=== PATIENT | male | born 2000 | race Caucasian/White ===

== ENCOUNTER 2019-10-15 17:54 | Inpatient (IN) | payer BC ==
[~2019-10-15] VITALS: Ht 175.3 cm; Wt 72.7 kg
[2019-10-15] VITALS (7 sets, daily range): BP systolic 96–108; BP diastolic 57–68; Ht 175.3 cm; Wt 72.7 kg
--- NOTE | 2019-10-15 18:06 | NUR ---
CONTACT [facility] AT THIS TIME
--- NOTE | 2019-10-15 18:16 | NUR ---
SPOKE WITH MAY WITH [facility]. FOR LISINOPRIL INGESTION: WATCH FOR HYPERKALEMIA, MILD HYPOTENSION, RENAL INSUFFICIANCY, SYNCOPE AND BRADYCARDIA. TX BY SUPPORT SYMPTOMS, FLUID FOR HYPOTENSION, TX HYPERKALEMIA IF NEEDED FOR ABILIFY INSUFFICIENCY: WATCH FOR NEW GRAD RN SEDATION, TACHYCARDIA, TREMORS, NAUSEA AND VOMITING, POSSIBLE NEURO MALIGNANT SYNDROME (TX WITH DANTROLENE OR BENZOs IF NEEDED), AGITATION TX BY SUPPORTING SYMPTOMS, FLUIDS, ANTIEMETICS, BENZOs DR. PEREZ INFORMED OF THIS INFORMATION.
[2019-10-15 18:21] LABS: BASOPHILS 0.4 % (0-2); EOSINOPHILS 0.7 % (0-7); HEMATOCRIT 43.7 % (42.0-54.0); HEMOGLOBIN 15.4 g/dL (13.5-17.5); IMMATURE GRANULOCYTES 0.1 % (0-5); LYMPHOCYTES 29.7 % (15-50); MCH 28.8 pg (26.0-34.0); MCHC 35.2 g/dL (31.0-37.0); MCV 81.7 fL (80.0-100.0); MEAN PLATELET VOLUME 10.1 fL (7.4-10.4); MONOCYTES 7.5 % (2-11); NEUTROPHILS 61.6 % (40-80); PLATELET COUNT 241 10x3/uL (130-400); RBC 5.35 10x6/uL (4.20-6.10); RDW 12.3 % (11.5-14.5); WBC 8.4 10x3/uL (4.8-10.8)
[2019-10-15 18:27] LABS: CALC OSMOLALITY 287 mosm/kg (275-300); CALCIUM 9.3 mg/dL (8.5-10.1); CARBON DIOXIDE 28.3 mmol/L (21.0-32.0); CHLORIDE - SERUM 105 mmol/L (98-107); CREATININE - SERUM 0.9 mg/dL (0.6-1.3); GLUCOSE 95 mg/dL (74-106); POTASSIUM - SERUM 3.6 mmol/L (3.5-5.1); SODIUM 144 mmol/L (136-145); UREA NITROGEN 14 mg/dL (7-18); eGFR NON AFRICAN AMERICAN > 90 mL/min (90-120)
[2019-10-15 18:34] LABS: APPEARANCE CLEAR (CLEAR); BILIRUBIN NEGATIVE (NEGATIVE); COLOR YELLOW (YELLOW); GLUCOSE NEGATIVE (NEGATIVE); KETONE MODERATE mg/dL (NEGATIVE); NITRITE NEGATIVE (NEGATIVE); PROTEIN NEGATIVE (NEGATIVE); UROBILINOGEN NORMAL (NORMAL)
[2019-10-15 18:37] LABS: ALBUMIN 4.3 g/dL (3.4-5.0); ALKALINE PHOSPHATASE 53 U/L (46-116); ALT (SGPT) 22 U/L (10-68); BILIRUBIN - TOTAL 0.49 mg/dL (0.2-1.3); MAGNESIUM - SERUM 2.2 mg/dL (1.8-2.4); PROTEIN - SERUM 7.5 g/dL (6.4-8.2); UDS - AMPHET POSITIVE QUAL (NEGATIVE); UDS - BARB NEGATIVE QUAL (NEGATIVE); UDS - BENZO NEGATIVE QUAL (NEGATIVE); UDS - COCAINE NEGATIVE QUAL (NEGATIVE); UDS - OPIATE NEGATIVE QUAL (NEGATIVE); UDS - PCP NEGATIVE QUAL (NEGATIVE); UDS - THC POSITIVE QUAL (NEGATIVE)
--- NOTE | 2019-10-15 19:08 | NUR ---
REPORT TO ELVIS WALDROP FOR SHIFT CHANGE.
--- NOTE | 2019-10-15 19:19 | NUR ---
CALLED FOR PSYCH ASSESSMENT
[2019-10-15 20:40] LABS: CKMB 1.2 U/L (0.0-3.6); CREATINE KINASE 171 UL (21-232)
[2019-10-15 20:42] LABS: TROPONIN-I < 0.017 ng/mL (0.000-0.060)
--- NOTE | 2019-10-15 21:35 | NUR ---
PT ARRIVED TO UNIT VIA BED AND ER STAFF. AOX4, ANSWERS QUESTIONS APPROPRIATELY AND FOLLOWS COMMANDS. LUNG SOUNDS CLEAR, SPO2 98 ON ROOM AIR. S1S2 HEARD, PERIPHERAL PULSES PRESENT. DENIES NAUSEA. BOWEL SOUNDS ACTIVE. PT MOVES EXTREMITIES X4 AGAINST GRAVITY. REPOSITIONS SELF INDEPENDENTLY. DENIES PAIN. DENIES NEEDS. VSS, SITTER AT BEDSIDE.
--- NOTE | 2019-10-15 21:56 | NUR ---
DOCTOR JASMINA NOTIFIED AND REVIEWED PATIENT'S BEHAVIOR AND ASSESSMENT. PATIENT IS A HIGH RISK. SUICIDE WATCH ORDERED. SITTER AT BEDSIDE. SAFETY PLAN INITIATED. RESOURCES GIVEN AND HE VERBALIZES UNDERSTANDING.
--- NOTE | 2019-10-15 23:30 | NUR ---
PT SLEEPING QUIETLY WITH VSS, NO S/S OF DISTRESS NOTED. SITTER AT BEDSIDE.
[2019-10-16] VITALS (13 sets, daily range): BP systolic 87–112; BP diastolic 50–72
[2019-10-16 01:56] LABS: ALBUMIN 3.4 g/dL (3.4-5.0); ALKALINE PHOSPHATASE 41 U/L (46-116); ALT (SGPT) 20 U/L (10-68); BILIRUBIN - TOTAL 0.31 mg/dL (0.2-1.3); CALC OSMOLALITY 291 mosm/kg (275-300); CALCIUM 8.2 mg/dL (8.5-10.1); CARBON DIOXIDE 29.2 mmol/L (21.0-32.0); CHLORIDE - SERUM 108 mmol/L (98-107); CREATININE - SERUM 0.9 mg/dL (0.6-1.3); GLUCOSE 108 mg/dL (74-106); POTASSIUM - SERUM 3.3 mmol/L (3.5-5.1); PROTEIN - SERUM 6.5 g/dL (6.4-8.2); SODIUM 146 mmol/L (136-145); UREA NITROGEN 12 mg/dL (7-18); eGFR NON AFRICAN AMERICAN > 90 mL/min (90-120)
--- NOTE | 2019-10-16 02:34 | NUR ---
REASSESSMENT COMPLETE, NO NEW CHANGES AT THIS TIME. PT SLEEPING QUIETLY, AROUSES EASILY TO VOICE. FOLLOWS ALL COMMANDS. REPOSITIONS SELF INDEPENDENTLY. DENIES NEEDS. VSS, SITTER AT BEDSIDE.
[2019-10-16 05:08] LABS: ALBUMIN 3.4 g/dL (3.4-5.0); ALKALINE PHOSPHATASE 39 U/L (46-116); ALT (SGPT) 19 U/L (10-68); BILIRUBIN - TOTAL 0.44 mg/dL (0.2-1.3); CALC OSMOLALITY 286 mosm/kg (275-300); CALCIUM 8.5 mg/dL (8.5-10.1); CARBON DIOXIDE 29.5 mmol/L (21.0-32.0); CHLORIDE - SERUM 109 mmol/L (98-107); CREATININE - SERUM 0.8 mg/dL (0.6-1.3); GLUCOSE 100 mg/dL (74-106); PROTEIN - SERUM 6.2 g/dL (6.4-8.2); SODIUM 144 mmol/L (136-145); UREA NITROGEN 12 mg/dL (7-18); eGFR NON AFRICAN AMERICAN > 90 mL/min (90-120)
[2019-10-16 05:15] LABS: POTASSIUM - SERUM 4.1 mmol/L (3.5-5.1)
[2019-10-16 08:40] LABS: ALBUMIN 3.4 g/dL (3.4-5.0); ALKALINE PHOSPHATASE 39 U/L (46-116); ALT (SGPT) 19 U/L (10-68); BILIRUBIN - TOTAL 0.48 mg/dL (0.2-1.3); CALC OSMOLALITY 283 mosm/kg (275-300); CALCIUM 8.4 mg/dL (8.5-10.1); CARBON DIOXIDE 27.2 mmol/L (21.0-32.0); CHLORIDE - SERUM 110 mmol/L (98-107); CREATININE - SERUM 0.8 mg/dL (0.6-1.3); GLUCOSE 107 mg/dL (74-106); POTASSIUM - SERUM 4.4 mmol/L (3.5-5.1); PROTEIN - SERUM 6.2 g/dL (6.4-8.2); SODIUM 143 mmol/L (136-145); UREA NITROGEN 11 mg/dL (7-18); eGFR NON AFRICAN AMERICAN > 90 mL/min (90-120)
[2019-10-16 12:06] LABS: ALBUMIN 3.3 g/dL (3.4-5.0); ALKALINE PHOSPHATASE 39 U/L (46-116); ALT (SGPT) 18 U/L (10-68); BILIRUBIN - TOTAL 0.37 mg/dL (0.2-1.3); CALC OSMOLALITY 283 mosm/kg (275-300); CALCIUM 8.1 mg/dL (8.5-10.1); CARBON DIOXIDE 27.7 mmol/L (21.0-32.0); CHLORIDE - SERUM 110 mmol/L (98-107); CREATININE - SERUM 0.9 mg/dL (0.6-1.3); GLUCOSE 97 mg/dL (74-106); POTASSIUM - SERUM 4.2 mmol/L (3.5-5.1); PROTEIN - SERUM 6.2 g/dL (6.4-8.2); SODIUM 143 mmol/L (136-145); UREA NITROGEN 10 mg/dL (7-18); eGFR NON AFRICAN AMERICAN > 90 mL/min (90-120)
--- NOTE | 2019-10-16 12:53 | NUR ---
DR GARCES HERE FOR EVAL, STATED PATIENT NOT A DANGER TO SELF JUST IMPLUSIVE, WILL RECCOMMEND OUT PATIENT THERAPY WHEN PATIENT IS MEDICALLY STABLE FOR DISCHARGE
--- NOTE | 2019-10-16 13:55 | NUR ---
SITTER AT BEDSIDE FOR SUICIDE RISK MONITORING. PT DENIES SI. PT HAS A HX OF BIPOLAR AND ATTEMPTED SUICIDE BY TAKING 30 PILLS. PT STATED, "I KNOW IT WAS STUPID BUT I WAS UPSET OVER MY GIRLFRIEND." COPING SKILLS REVIEWED WITH THE PT BUT HE SHOWS NO SIGNS OF ACCEPTING. DR. FREEDMAN EVALUATED AND FEELS HE WILL BE FINE WITH OUT PT THERAPY ONCE MEDICALLY STABLE.
--- NOTE | 2019-10-16 15:43 | MORECARE ---
CASE MANAGEMENT DISCHARGE SUMMARY PATIENT: TORI WYNNE UNIT: [id number] ADM DATE: 10/15/19 AGE: 19 : [birth year] SEX: M ROOM/BED: D.2310 AUTHOR: LEV JIMENEZ PHYSICIAN: REFERRING PHYSICIAN: REJI MAJOR MD DATE OF SERVICE: 10/16/19 Discharge Plan Patient Name: TORI WYNNE Facility: [facility]:[place] : 2000 Planned Disposition: Anticipated Discharge Date: Discharge Date: Expected LOS: Initial Reviewer: [email or web address] Initial Review Date: 10/15/2019 Generated: 10/16/19 4:43 pm Patient Name: TORI WYNNE Page [id number] at 1543 All edits/amendments must be made on the electronic document DICTATION DATE: 10/16/19 1543 PSYCHOLOGY INSTRUCTOR: EVAN 10/16/19 1543 RPT#: [id number] DC DATE: STATUS: ADM IN [facility] [address] [place] [address] END OF REPORT
[2019-10-16 16:12] LABS: ALBUMIN 3.3 g/dL (3.4-5.0); ALKALINE PHOSPHATASE 45 U/L (46-116); ALT (SGPT) 17 U/L (10-68); BILIRUBIN - TOTAL 0.25 mg/dL (0.2-1.3); CALC OSMOLALITY 287 mosm/kg (275-300); CALCIUM 8.2 mg/dL (8.5-10.1); CARBON DIOXIDE 28.2 mmol/L (21.0-32.0); CHLORIDE - SERUM 109 mmol/L (98-107); CREATININE - SERUM 0.9 mg/dL (0.6-1.3); GLUCOSE 105 mg/dL (74-106); POTASSIUM - SERUM 4.1 mmol/L (3.5-5.1); SODIUM 145 mmol/L (136-145); UREA NITROGEN 10 mg/dL (7-18); eGFR NON AFRICAN AMERICAN > 90 mL/min (90-120)
--- NOTE | 2019-10-16 18:03 | MORECARE ---
CASE MANAGEMENT DISCHARGE SUMMARY PATIENT: TORI WYNNE UNIT: [id number] ADM DATE: 10/15/19 AGE: 19 : [birth year] SEX: M ROOM/BED: D.2310 AUTHOR: LEV JIMENEZ PHYSICIAN: REFERRING PHYSICIAN: REJI MAJOR MD DATE OF SERVICE: 10/16/19 Discharge Plan Patient Name: TORI WYNNE Facility: [facility]:[place] : 2000 Planned Disposition: Home Anticipated Discharge Date: Discharge Date: Expected LOS: Initial Reviewer: [email or web address] Initial Review Date: 10/15/2019 Generated: 10/16/19 7:02 pm Comments DCP- Discharge Planning Updated by [email or web address]: Larissa Brewster on 10/16/19 4:[address] Patient Name: TORI WYNNE Admission Status: ER Accout number: [id number] Admission Date: 10-15-2019 : 2000 Admission Diagnosis: Attending: REJI MAJOR Current LOS: 1 Anticipated DC Date: Planned Disposition: Home Primary Insurance[facility] [employer] [facility] Discharge Planning Comments: CM met with patient at bedside after explaining CM role and obtaining verbal consent. Patient lives at home where he is independent with his care and plans to return there upon discharge. Patient is to follow up with psych outpatient. Patient given information on [facility] walk in clinic for follow up. CM will continue to follow and assist as needed with discharge planning / needs. Financial Aid Officer: Larissa Brewster Last DP export: 10/16/19 2:43 p Patient Name: TORI WYNNE Page [id number] at 1803 All edits/amendments must be made on the electronic document DICTATION DATE: 10/16/191801 MANAGER IMMUNOLOGY: EVAN 10/16/191801 RPT#: [id number] DC DATE: STATUS: ADM IN [facility] [address] [place] [address] END OF REPORT
--- NOTE | 2019-10-17 09:41 | MORECARE ---
CASE MANAGEMENT DISCHARGE SUMMARY PATIENT: TORI WYNNE UNIT: [id number] ADM DATE: 10/15/19 AGE: 19 : 99 SEX: M ROOM/BED: D.2310 AUTHOR: LEV JIMENEZ PHYSICIAN: REFERRING PHYSICIAN: REJI MAJOR MD DATE OF SERVICE: 10/17/19 Discharge Plan Patient Name: TORI WYNNE Facility: [facility]:[place] : 2000 Planned Disposition: Home Anticipated Discharge Date: Discharge Date: 10/16/2019 Expected LOS: Initial Reviewer: [email or web address] Initial Review Date: 10/15/2019 Generated: 10/17/19 10:41 am Comments DCP- Discharge Planning Updated by [email or web address]: Larissa Brewster on 10/16/19 4:[address] Patient Name: TORI WYNNE Admission Status: ER Accout number: [id number] Admission Date: 10-15-2019 : 2000 Admission Diagnosis: Attending: REJI MAJOR Current LOS: 1 Anticipated DC Date: Planned Disposition: Home Primary Insurance: [employer] Discharge Planning Comments: CM met with patient at bedside after explaining CM role and obtaining verbal consent. Patient lives at home where he is independent with his care and plans to return there upon discharge. Patient is to follow up with psych outpatient. Patient given information on [facility] walk in clinic for follow up. CM will continue to follow and assist as needed with discharge planning / needs. Substation Wireman: Larissa Brewster Last DP export: 10/16/19 5:03 p Patient Name: TORI WYNNE Page [id number] at 0941 All edits/amendments must be made on the electronic document DICTATION DATE: 10/17/19940 BALL FRINGE MACHINE OPERATOR: EVAN 10/17/19940 RPT#: [id number] DC DATE:10/16/19 STATUS: DIS IN [facility] [address] [place] [address] END OF REPORT
--- NOTE | 2019-10-17 15:55 | CN ---
PATIENT NAME:TORI WYNNE MEDICAL RECORD: [id number] : [birth year] LOCATION:SHEYLA.2310 ADMIT DATE: 10/15/19 ACCOUNT: [id number] CONSULTING PHYSICIAN: REJI FREEDMAN MD REFERRING PHYSICIAN: REJI MAJOR MD DATE OF CONSULTATION: 10/16/2019 IDENTIFYING DATA: The patient is 19 years old and he is admitted to the hospital secondary to an overdose. CHIEF COMPLAINT: "I just did something stupid." HISTORY OF PRESENT ILLNESS: The patient had an argument with his girlfriend and then took 6 Abilify tablets and 30 lisinopril tablets. Both of these medications did not belong to him. He says he did so at that time with the intent of trying to calm down, but he also does admit that he says that he took them deliberately and that he may well have said that he wanted to kill himself. He goes on to tell me how upset he was and why. I have the distinct impression that he is being very honest with me or at least is honest and straightforward as he is capable of being. He is denying neurovegetative depressive symptoms. He denies psychotic symptoms. He does freely admit that he had been using amphetamines and marijuana. He also did take the pills in front of someone, which was highly rescuable. The patient has no psychotic symptoms. He is no longer under the influence of drugs and tells me that he has no thoughts of hurting himself. There is a genuine as to what he is telling me and believability. He has no depressive symptoms observable. He does have a longitudinal history significant for psychiatric difficulties and the pattern sounds very much like a substance use personality disordered scenario. ASSESSMENT: 1. Polysubstance abuse. 2. Cluster B personality disorder. 3. Status post overdose. PLAN: I have offered the patient inpatient psychiatric care and he has declined. I could probably force him into the hospital with a court order under the circumstances, but I am electing not to do so. I am electing not to do so based on my clinical judgment that his acute risk is low. I base this on the interview and examination. The patient is immature personality disorder and has poor coping skills. He does not have an underlying mood disorder or psychotic disorder. The circumstances were situational and done in a highly rescuable state. It is my opinion that he is not acutely dangerous, which is quite different from saying that he in the long run is not acutely dangerous. Given the circumstances described above, he could easily try to hurt himself again if sufficiently stressed and was using substances. He denies that he needs substance abuse treatment. He is not going to stop smoking marijuana, but he says he will not use methamphetamine if that was an isolated event. He is willing to go to outpatient psychiatric care and would like counseling. I think it is reasonable to discharge him from the hospital once he is medically stabilized and follow up should be with [facility] as they are now known. TRANSINT:[id number] Voice Confirmation ID: [id number] DOCUMENT ID: [id number] CONSULT REPORT [id number] TORI WYNNE, REJI ROLLINS at 1555 CC: [id number] DICTATION DATE: 10/16/19 1614 HAT SPRAYER: 10/16/19 1646 DIS IN 10/16/19 [id number] [place] [address]
== END 2019-10-16 18:00 | disposition home or self-care (01) | DRG 918 ==
LOC: D.ER 17:54 → D.ICU 19:50
PROVIDERS: Family Medicine; ADMIT Internal Medicine Nephrology; ATTEND Internal Medicine Nephrology
DX: T46.4X2A Poisoning by angiotensin-converting-enzyme inhibitors, intentional self-harm, initial encounter (principal); F17.203 Nicotine dependence unspecified, with withdrawal; F31.9 Bipolar disorder, unspecified; F19.10 Other psychoactive substance abuse, uncomplicated